=== PATIENT | female | born 1990 | race African-American/Black ===

== ENCOUNTER 2023-03-01 06:33 | Emergency (ER) | payer SELFPAY ==
[2023-03-01] MEDS ORDERED: Ibuprofen 200 MG TAB ONE (07:55)
[2023-03-01] MEDS ORDERED: Ondansetron ODT 4 MG TAB ONE (07:55)
[2023-03-01 08:48] LABS: Bilirubin Neg (Negative); Blood, Urine 10 (Negative); Glucose, Urine (Dipstick) Normal (Negative); Ketone, Urine Negative (Negative); Leukocyte 25 (Negative); Nitrite Negative (Negative); Protein, Urine (Dipstick) Negative (Neg-Trace); Specific Gravity, Urine 1.005 (1.005-1.030); Urobilinogen Normal mg/dL (Less than 2)
[2023-03-01 08:50] LABS: Clarity Clear (Clear)
[2023-03-01 08:51] LABS: Pregnancy Test - Urine (BHCG) Negative (Negative); Specific Gravity 1.005 (1.002-1.036)
[2023-03-01 08:52] LABS: Pregu Control Background? CLEAR/WHITE (CLR/WHITE); Pregu Control Bar Appear? YES (CONTROL BAR)
[2023-03-01 09:10] LABS: Bacteria/HPF Rare-Few HPF (None Seen); CAUTI Indications for Culture Pelvic or flank pain; RBC/HPF 0-3 HPF (0-3); WBC/HPF 0-3 HPF (0-3)
[2023-03-01 09:11] LABS: Urine Culture Reflex No No
[2023-03-01 09:49] LABS: SARS-CoV-2 NAA Rapid Test Not Detected (NotDetected)
== END 2023-03-01 09:13 | disposition home or self-care (01) ==
LOC: CSHERS 06:33
DX: R11.2 Nausea with vomiting, unspecified (principal); Z20.822 Contact with and (suspected) exposure to COVID-19
CPT/HCPCS: 81001; 81025; 99283; Q0162

== ENCOUNTER 2025-02-18 11:42 | Emergency (ER) | payer SELFPAY ==
[2025-02-18] MEDS ORDERED: Fluorescein Opthalmic Strip ONE (12:57)
[2025-02-18] MEDS ORDERED: Proparacaine 0.5% Opth 15 ML BOT ONE (12:58)
[2025-02-18] MEDS ORDERED: Erythromycin Base 0.5% Oint 1 GM TUBE ONE (13:16)
== END 2025-02-18 13:18 | disposition home or self-care (01) ==
LOC: CSHERS 11:42
DX: H10.9 Unspecified conjunctivitis (principal)
CPT/HCPCS: 99283

== ENCOUNTER 2025-02-20 17:33 | Emergency (ER) | payer SELFPAY ==
[2025-02-20] MEDS ORDERED: Gentamicin Ophth Soln 0.3% 5 ml Bottle EA EYE SCH (19:30)
== END 2025-02-20 19:30 | disposition home or self-care (01) ==
LOC: CSHERS 17:33
DX: H10.9 Unspecified conjunctivitis (principal)
CPT/HCPCS: 99283